=== PATIENT | female | born 1980 | race Caucasian/White ===

== ENCOUNTER 2017-08-29 11:40 | Emergency (ER) | payer SELFPAY ==
[~2017-08-29] VITALS: Ht 170.2 cm; Wt 73.5 kg
[2017-08-29 12:02] LABS: BASOPHILS % (AUTO) 0 % (0-10); EOSINOPHILS # (AUTO) 0.2 10^3/uL (0.0-0.3); EOSINOPHILS % (AUTO) 2 % (0-10); HEMATOCRIT 36 % (35-52); HEMOGLOBIN 12.6 G/DL (11.5-16.0); LYMPHOCYTES # (AUTO) 2.1 X 10^3 (1.0-4.0); LYMPHOCYTES % (AUTO) 26 % (12-44); MEAN CORPUSCULAR HEMOGLOBIN 30 PG (25-34); MEAN CORPUSCULAR HGB CONC 36 G/DL (32-36); MEAN CORPUSCULAR VOLUME 85 FL (80-99); MEAN PLATELET VOLUME 12.3 FL (7.4-10.4); MONOCYTES # (AUTO) 0.6 X 10^3 (0.0-1.0); MONOCYTES % (AUTO) 8 % (0-12); NEUTROPHILS # (AUTO) 5.3 X 10^3 (1.8-7.8); NEUTROPHILS % (AUTO) 64 % (42-75); PLATELET COUNT 200 10^3/uL (130-400); RED BLOOD COUNT 4.17 10^6/uL (4.35-5.85); RED CELL DISTRIBUTION WIDTH 12.9 % (10.0-14.5); WHITE BLOOD COUNT 8.2 10^3/uL (4.3-11.0)
[2017-08-29 12:21] LABS: ALANINE AMINOTRANSFERASE 22 U/L (0-55); ALBUMIN 3.8 GM/DL (3.2-4.5); ALKALINE PHOSPHATASE 52 U/L (40-136); BILIRUBIN,TOTAL 0.1 MG/DL (0.1-1.0); BUN/CREATININE RATIO 12; CALCIUM 8.1 MG/DL (8.5-10.1); CARBON DIOXIDE 19 MMOL/L (21-32); CHLORIDE 115 MMOL/L (98-107); GFR ESTIMATED > 60; GLUCOSE 115 MG/DL (70-105); POTASSIUM 3.3 MMOL/L (3.6-5.0); SODIUM 145 MMOL/L (135-145); TOTAL PROTEIN 6.4 GM/DL (6.4-8.2)
[2017-08-29] MEDS ORDERED: methylPREDNISolone 125 MG (Solu-MEDROL) VIAL IVP ONE (12:30)
[2017-08-29] MEDS ORDERED: RT-ALBUTEROL/IPRATROPIUM 3 ML (DUONEB) VIAL INH ONE (12:30)
--- NOTE | 2017-08-29 12:33 | Diagnostic Imaging Report ---
INDICATION: Difficulty breathing. Syncope. EXAMINATION: PA and lateral views of the chest. FINDINGS: The heart size and vascularity are normal. Lungs are clear. There is no effusion. There is no acute bony abnormality. IMPRESSION: No acute abnormality is seen. Dictated by: Dictated on workstation # [id number]
[2017-08-29] MEDS ORDERED: RT-ALBUTEROL SULF 2.5 MG/3 ML PRE-MIX VIAL INH STA (13:11)
[2017-08-29] MEDS ORDERED: KETOROLAC 30 MG/ML VIAL IVP STA (13:11)
[2017-08-29 13:13] LABS: BILIRUBIN,URINE NEGATIVE (NEGATIVE); CLARITY,URINE CLEAR; COLOR,URINE YELLOW; GLUCOSE, URINE (UA) NEGATIVE (NEGATIVE); KETONES,URINE NEGATIVE (NEGATIVE); LEUKOCYTE ESTERASE ,URINE 1+ (NEGATIVE); NITRITE,URINE NEGATIVE (NEGATIVE); PH,URINE 6 (5-9); PROTEIN,URINE NEGATIVE (NEGATIVE); UROBILINOGEN,URINE NORMAL (NORMAL)
[2017-08-29 13:20] LABS: BACTERIA,URINE TRACE /HPF; WBC,URINE 0-2 /HPF
--- NOTE | 2017-08-29 13:26 | ED General ---
General Chief Complaint: Respiratory Problems Stated Complaint: DIFFICULTY BREATHING,COUGH Nursing Triage Note: pt presents to ed with complaints of soa starting this am. pt reports she almost fell out of bed tryng to get her breathing tx started at home. pt states she has not had any of her medication for 2 weeks because it is all packed up from her move. pt reports she was seen at [facility] and they sent her to ed becuase her blood pressure was high. Nursing Sepsis Screen: No Definite Risk Source of Information: Patient, Family Exam Limitations: No Limitations History of Present Illness Date Seen by Provider: Aug 29, 2017 Allergies and Home Medications Allergies Coded Allergies: No Known Drug Allergies (Unverified , 08/29/17) Past Oydxpen-Scflbq-Gcsglu Hx Patient Social History Alcohol Use: Regular Use Number of Drinks Today: 0 Alcohol Beverage of Choice: Whiskey Recreational Drug Use: Yes (reports clean for 160 days use to be a iv drug user ) Smoking Status: Current Everyday Smoker Type Used: Cigarettes Recent Foreign Travel: No Contact w/Someone Who Travel: No Recent Infectious Disease Expo: No Physical Abuse: No Sexual Abuse: No Mistreated: No Fear: No Surgeries History of Surgeries: Yes (neck sx) Surgeries: Hysterectomy Respiratory History of Respiratory Disorde: Yes Respiratory Disorders: Asthma, Emphysema Cardiovascular History of Cardiac Disorders: Yes Cardiac Disorders: Coronary Artery Disease, Hypertension Neurological History of Neurological Disord: No Genitourinary History of Genitourinary Disor: No Gastrointestinal History of Gastrointestinal Di: No Musculoskeletal History of Musculoskeletal Dis: No Endocrine History of Endocrine Disorders: No HEENT History of HEENT Disorders: No Cancer History of Cancer: No Psychosocial History of Psychiatric Problem: Yes Behavioral Health Disorders: Anxiety Suicide Risk Score: 0 Blood Transfusions History of Blood Disorders: No Physical Exam Vital Signs Vital Signs - First Documented 08/29/17 08/29/17 11:53 12:31 Temp 98.1 Pulse 103 Resp 30 B/P (MAP) 134/105 (115) Pulse Ox 99 O2 Delivery Room Air Capillary Refill : Less Than 3 Seconds Progress/Results/Core Measures Suspected Sepsis Recent Fever Within 48 Hours: No Infection Criteria Present: None New/Unexplained Altered Menta: No Sepsis Screen: No Definite Risk Sepsis Diagnosis: SIRS Temperature:98.1 Pulse: 103 Respiratory Rate: 30 Laboratory Tests 08/29/17 11:46: White Blood Count 8.2 Blood Pressure 134 /105 Mean: 115 Laboratory Tests 08/29/17 11:46: Creatinine 0.90, Platelet Count 200, Total Bilirubin 0.1 Results/Orders Lab Results Laboratory Tests Test 08/29/17 11:46 08/29/17 13:02 Range/Units White Blood Count 8.2 4.3-11.0 10^3/uL Red Blood Count 4.17 L 4.35-5.85 10^6/uL Hemoglobin 12.6 11.5-16.0 G/DL Hematocrit 36 35-52 % Mean Corpuscular Volume 85 80-99 FL Mean Corpuscular Hemoglobin 30 25-34 PG Mean Corpuscular Hemoglobin Concent 36 32-36 G/DL Red Cell Distribution Width 12.9 10.0-14.5 % Platelet Count 200 130-400 10^3/uL Mean Platelet Volume 12.3 H 7.4-10.4 FL Neutrophils (%) (Auto) 64 42-75 % Lymphocytes (%) (Auto) 26 12-44 % Monocytes (%) (Auto) 8 0-12 % Eosinophils (%) (Auto) 2 0-10 % Basophils (%) (Auto) 0 0-10 % Neutrophils # (Auto) 5.3 1.8-7.8 X 10^3 Lymphocytes # (Auto) 2.1 1.0-4.0 X 10^3 Monocytes # (Auto) 0.6 0.0-1.0 X 10^3 Eosinophils # (Auto) 0.2 0.0-0.3 10^3/uL Basophils # (Auto) 0.0 0.0-0.1 10^3/uL Sodium Level 145 135-145 MMOL/L Potassium Level 3.3 L 3.6-5.0 MMOL/L Chloride Level 115 H 98-107 MMOL/L Carbon Dioxide Level 19 L 21-32 MMOL/L Anion Gap 11 5-14 MMOL/L Blood Urea Nitrogen 11 7-18 MG/DL Creatinine 0.90 0.60-1.30 MG/DL Estimat Glomerular Filtration Rate > 60 BUN/Creatinine Ratio 12 Glucose Level 115 H 70-105 MG/DL Calcium Level 8.1 L 8.5-10.1 MG/DL Total Bilirubin 0.1 0.1-1.0 MG/DL Aspartate Amino Transf (AST/SGOT) 41 H 5-34 U/L Alanine Aminotransferase (ALT/SGPT) 22 0-55 U/L Alkaline Phosphatase 52 40-136 U/L Troponin I < 0.30 <0.30 NG/ML Total Protein 6.4 6.4-8.2 GM/DL Albumin 3.8 3.2-4.5 GM/DL Free Thyroxine 1.15 0.70-1.48 NG/DL TSH [place] Testing 0.20 L 0.35-4.94 UIU/ML Urine Color YELLOW Urine Clarity CLEAR Urine pH 6 5-9 Urine Specific [place] 1.020 1.016-1.022 Urine Protein NEGATIVE NEGATIVE Urine Glucose (UA) NEGATIVE NEGATIVE Urine Ketones NEGATIVE NEGATIVE Urine Nitrite NEGATIVE NEGATIVE Urine Bilirubin NEGATIVE NEGATIVE Urine Urobilinogen NORMAL NORMAL MG/DL Urine Leukocyte Esterase 1+ H NEGATIVE Urine RBC (Auto) NEGATIVE NEGATIVE Urine RBC NONE /HPF Urine WBC 0-2 /HPF Urine Squamous Epithelial Cells 5-10 /HPF Urine Crystals NONE /LPF Urine Bacteria TRACE /HPF Urine Casts NONE /LPF Urine Mucus NEGATIVE /LPF Urine Culture Indicated NO Urine Opiates Screen NEGATIVE NEGATIVE Urine Oxycodone Screen NEGATIVE NEGATIVE Urine Methadone Screen NEGATIVE NEGATIVE Urine Propoxyphene Screen NEGATIVE NEGATIVE Urine Barbiturates Screen NEGATIVE NEGATIVE Ur Tricyclic Antidepressants Screen NEGATIVE NEGATIVE Urine Phencyclidine Screen NEGATIVE NEGATIVE Urine Amphetamines Screen POSITIVE H NEGATIVE Urine Methamphetamines Screen POSITIVE H NEGATIVE Urine Benzodiazepines Screen NEGATIVE NEGATIVE Urine Cocaine Screen NEGATIVE NEGATIVE Urine Cannabinoids Screen NEGATIVE NEGATIVE My Orders Orders - GARCIA COSME L PA Saline Lock/Iv-Start (08/29/17 11:54) Urine Bedside (08/29/17 11:54) Cbc With Automated Diff (08/29/17 11:54) Comprehensive Metabolic Panel (08/29/17 11:54) Drug Screen Stat (Urine) (08/29/17 11:54) Thyroid Analyzer (08/29/17 11:54) Troponin I (08/29/17 11:54) Ua Culture If Indicated (08/29/17 11:54) Chest Pa/Lat (2 View) (08/29/17 11:54) Albuterol/Ipra Inhalation Soln (Duoneb I (08/29/17 12:30) Svn Sm Volume Nebulizer Rt-Rfs (08/29/17 12:16) Methylprednisolone Sod Succ (Solu-Medrol (08/29/17 12:30) Free T4 (Free Thyroxine) (08/29/17 11:46) Ct Cervical Spine Wo (08/29/17 13:11) Albuterol Pre-Mix Nebs (Rt) (Proventil (08/29/17 13:11) Ketorolac Injection (Toradol Injection) (08/29/17 13:11) Svn Sm Volume Nebulizer Rt-Rfs (08/29/17 13:11) Medications Given in ED Current Medications Medications Dose Ordered Sig/Mireya Route Start Time Stop Time Status Last Admin Dose Admin Albuterol/ Ipratropium 3 ml ONCE ONCE INH 08/29/17 12:30 08/29/17 12:31 DC 08/29/17 12:28 3 ML Methylprednisolone Sodium Succinate 125 mg ONCE ONCE IVP 08/29/17 12:30 08/29/17 12:31 DC 08/29/17 12:38 125 MG Vital Signs/I&O Vital Sign - Last 12Hours 08/29/17 08/29/17 11:53 12:31 Temp 98.1 Pulse 103 Resp 30 B/P (MAP) 134/105 (115) Pulse Ox 99 98 O2 Delivery Room Air Capillary Refill : Less Than 3 Seconds Blood Pressure Mean: 115 Departure Impression Impression: Primary Impression: COPD exacerbation Additional Impressions: Methamphetamine abuse Sprain of cervical neck Disposition: HOME, SELF-CARE Condition: Improved Departure-Patient Inst. Decision time for Depature: 14:05 Referrals: NEMESIO BAUER DO (PCP/Family) Primary Care Physician Patient Instructions: Cervical Muscle Strain (DC), Drug Abuse and Drug Addiction (DC), Exacerbation of COPD (DC), Methamphetamine Add. Discharge Instructions: All discharge instructions reviewed with patient and/or family. Voiced understanding. Medications as instructed. Tylenol extra strength over-the- counter as directed for pain. Ibuprofen 800 mg by mouth every 8 hours as needed for pain. Follow-up with the family practitioner of your choice to establish care and for discussion of drug rehabilitation, call today for appointment time. Return to the emergency department for worsened symptoms or any other concerns. Scripts Albuterol Sulfate (Proventil Hfa) 6.7 Gm Hfa.aer.ad 2 PUFF IH Q6H Y for SHORTNESS OF BREATH, #1 EACH 0 Refills Prov: GARCIA COSME 08/29/17 Prednisone (Prednisone) 20 Mg Tab 40 MG PO DAILY, #10 TAB 0 Refills Prov: GARCIA COSME 08/29/17 Work/School Note: [employer] GARCIA COSME Aug 29, 2017 13:26
[2017-08-29 13:30] LABS: FREE T4 (FREE THYROXINE) 1.15 NG/DL (0.70-1.48)
[2017-08-29 13:30] LABS: AMPHETAMINE SCREEN, URINE POSITIVE (NEGATIVE); BARBITURATE SCREEN URINE NEGATIVE (NEGATIVE); BENZODIAZEPINES SCREEN URINE NEGATIVE (NEGATIVE); CANNABINOID SCREEN, URINE NEGATIVE (NEGATIVE); COCAINE SCREEN URINE NEGATIVE (NEGATIVE); METHADONE STAT NEGATIVE (NEGATIVE); METHAMPHETAMINE SCREEN URINE S POSITIVE (NEGATIVE); OPIATE SCREEN URINE NEGATIVE (NEGATIVE); OXYCODONE STAT NEGATIVE (NEGATIVE); PROPOXYPHENE STAT NEGATIVE (NEGATIVE); TRICYCLIC ANTIDEPRESSANTS SCRE NEGATIVE (NEGATIVE)
--- NOTE | 2017-08-29 14:04 | Diagnostic Imaging Report ---
CLINICAL INDICATION: Patient complains of shortness of air starting this morning. EXAMINATION: CT scan of the cervical spine performed without IV contrast. Sagittal and coronal reformatted images are created. COMPARISON: CT scan of the cervical spine dated 07/29/2015. FINDINGS: There is no evidence of acute cervical spine fracture or dislocation. There are stable C4 through C6 anterior cervical interbody fusion with solid bony bridging/fusion seen. There is multilevel cervical spine degenerative disease with vertebral body spurs and facet arthropathy which is most pronounced at the C3-C4 and C6-C7 levels. There is hypertrophic uncinate spurs bilaterally at the C3-C4 level which causes severe left neural foramen narrowing and [id number] right neural foramen narrowing which has slightly progressed. There is also at least moderate left C4-C5 neural foramen narrowing and qyfl-ju-[id number] right neural foramen narrowing. There is ozia-qt-nrmphjeh right C5-C6 bony neural foramen narrowing and mild left neural foramen narrowing. There appears to be grossly moderate central canal narrowing at the C3-C4 level due to diffuse disc bulge with posterior disc herniation component. This appears similar to the prior study. There is no significant neck soft tissue abnormality. The aerodigestive tract is patent with no mass seen. The visualized lungs show mild paraseptal emphysema most seen on the right. IMPRESSION: 1.: There is no evidence of acute cervical spine fracture or dislocation. 2: There is stable C3-C4 diffuse disc bulge with posterior disc herniation which causes at least moderate central canal narrowing. CT cervical myelogram or MRI of the cervical spine would better evaluate. 3: C4 through C6 anterior cervical interbody fusion with solid bony bridging again seen. 4: Multilevel cervical spine degenerative disease. 5: There is no gross evidence of narrowing of the aerodigestive tract of the neck. Dictated by: Dictated on workstation # [id number]
[2017-08-29] MEDS ORDERED: PRD20T PO ×2 (14:18→14:45)
[2017-08-29] MEDS ORDERED: RT-ALBUINH IH ×2 (14:18→14:45)
[2017-08-29 14:20] VITALS: BP 152/103
[2017-08-29] MEDS ORDERED: POTA10TA10 PO (14:45)
== END 2017-08-29 14:20 | disposition home or self-care (01) ==
LOC: ER 11:43
DX: S13.4XXA Sprain of ligaments of cervical spine, initial encounter (principal); J44.1 Chronic obstructive pulmonary disease with (acute) exacerbation; F15.10 Other stimulant abuse, uncomplicated; I25.10 Atherosclerotic heart disease of native coronary artery without angina pectoris; I10 Essential (primary) hypertension; F41.9 Anxiety disorder, unspecified; F17.210 Nicotine dependence, cigarettes, uncomplicated; Z90.710 Acquired absence of both cervix and uterus; W06.XXXA Fall from bed, initial encounter
CPT/HCPCS: 36415; 71046; 72125; 80053; 80306; 81000; 84439; 84443; 84484; 85025; 96374; 96375